=== PATIENT | female | born 1970 | race African-American/Black ===

== ENCOUNTER 2019-09-11 09:24 | Emergency (ER) | payer OTHER ==
[~2019-09-11] VITALS: Ht 160 cm; Wt 65.3 kg
[2019-09-11] MEDS ORDERED: PREDNISONE 10 M10 M1 PO (11:01)
[2019-09-11 11:56] VITALS: BP 105/89
== END 2019-09-11 11:57 | disposition home or self-care (01) ==
LOC: ER 09:24
DX: L25.9 Unspecified contact dermatitis, unspecified cause (principal); Z88.0 Allergy status to penicillin; Z88.8 Allergy status to other drugs, medicaments and biological substances